=== PATIENT | male | born 1955 | race Caucasian/White ===

== ENCOUNTER → 2024-05-31 | Outpatient (CLI) | payer MEDICARE, BC ==
[2024-05-31 09:43] LABS: CHOLESTEROL RISK RATIO 3.88 (<5); HDL CHOLESTEROL 48.6 MG/DL (>40); LDL CHOLESTEROL 120.4 MG/DL (<100); NON-HDL-C 140.4 MG/DL
== END ==
LOC: M LAB 08:03
PROVIDERS: ATTEND Internal Medicine Cardiovascular Disease
DX: E78.2 Mixed hyperlipidemia (principal)

== ENCOUNTER → 2024-07-24 | Outpatient (CLI) | payer MEDICARE, BC | LOC: M RAD 14:59 | PROVIDERS: ATTEND Physician Assistant | DX: S46.012A Strain of muscle(s) and tendon(s) of the rotator cuff of left shoulder, initial encounter (principal); Y93.9 Activity, unspecified; Y92.9 Unspecified place or not applicable ==

== ENCOUNTER → 2024-07-29 | Outpatient (CLI) | payer MEDICARE, BC | LOC: M LAB 09:57 | PROVIDERS: ATTEND Nurse Practitioner Family | DX: C83.30 Diffuse large B-cell lymphoma, unspecified site (principal) ==

== ENCOUNTER → 2024-07-29 | Outpatient (CLI) | payer MEDICARE, BC ==
[2024-07-29 10:36] LABS: BASO % 0.8 % (0.0-1.0); EOS % 18.5 % (0.0-3.0); HEMATOCRIT 40.8 % (42.0-52.0); HEMOGLOBIN 13.1 g/dl (13.5-17.5); LYMPH # 1.9 10^3/uL (1.5-5.0); LYMPH % 35.7 % (24.0-44.0); MEAN CORPUSCULAR HEMOGLOBIN 31.4 pg (27.0-33.0); MEAN CORPUSCULAR HGB CONC 32.1 g/dl (32.0-36.5); MEAN CORPUSCULAR VOLUME 97.8 fl (80.0-96.0); MONO # 0.5 10^3/uL (0.0-0.8); NEUTROPHILS # 1.8 10^3/uL (1.5-8.5); NEUTROPHILS % 34.4 % (36.0-66.0); PLATELET COUNT, AUTOMATED 309 10^3/uL (150-450); RED BLOOD COUNT 4.17 10^6/uL (4.30-6.10); WHITE BLOOD COUNT 5.3 10^3/uL (4.0-10.0)
[2024-07-29 11:05] LABS: ALKALINE PHOSPHATASE 79 U/L (46-116); ALT/SGPT 20 U/L (7.0-40); AST/SGOT 18 U/L (<34); BILIRUBIN,TOTAL 0.4 MG/DL (0.3-1.2); BLOOD UREA NITROGEN 16 MG/DL (9-23); CALCIUM LEVEL 10.3 MG/DL (8.3-10.6); CARBON DIOXIDE LEVEL 31 MMOL/L (20-31); CHLORIDE LEVEL 106 MMOL/L (98-107); CREATININE FOR GFR 1.12 MG/DL (0.70-1.30); GLOMERULAR FILTRATION RATE > 60.0 (>49); GLUCOSE, FASTING 90 MG/DL (74-106); POTASSIUM SERUM 4.8 MMOL/L (3.5-5.1); SODIUM LEVEL 140 MMOL/L (136-145); TOTAL PROTEIN 6.8 G/DL (5.7-8.2)
[2024-07-29 11:07] LABS: IMMUNOGLOBULIN G 472 MG/DL (650-1600)
== END ==
LOC: M LAB 09:45
PROVIDERS: ATTEND Internal Medicine Hematology & Oncology
DX: C82.03 Follicular lymphoma grade I, intra-abdominal lymph nodes (principal); C83.78 Burkitt lymphoma, lymph nodes of multiple sites; C83.30 Diffuse large B-cell lymphoma, unspecified site; G43.909 Migraine, unspecified, not intractable, without status migrainosus; D80.1 Nonfamilial hypogammaglobulinemia; I26.99 Other pulmonary embolism without acute cor pulmonale; I82.431 Acute embolism and thrombosis of right popliteal vein; R55 Syncope and collapse; R05.9 Cough, unspecified; R74.01 Elevation of levels of liver transaminase levels; R19.7 Diarrhea, unspecified; R59.1 Generalized enlarged lymph nodes; N40.1 Benign prostatic hyperplasia with lower urinary tract symptoms; Z85.79 Personal history of other malignant neoplasms of lymphoid, hematopoietic and related tissues

== ENCOUNTER → 2024-09-29 | Outpatient (CLI) | payer MEDICARE, BC ==
[~2024-09-29] MED LIST: ACET650T15 PO; AJOV225I SC; ASPI81CH33 PO; BENA25CA4 PO; BREO1INH3; BUTA1CAP PO; CITRTAB18 PO; FENO160T10; FINA5TAB2; MAGN400C PO; METR60GE3 TOP; MIDO5TA; OMEP40CA5; PRAV80TA2; TAMS1CAP17; THERTAB52 PO; VENTAER INH; ZYRTTAB8 PO; [UNRECOGNIZED DRUG - CODE] IO; [UNRECOGNIZED DRUG - CODE] PO
== END ==
LOC: M RAD 13:41
PROVIDERS: ATTEND Physician Assistant Surgical
DX: M75.101 Unspecified rotator cuff tear or rupture of right shoulder, not specified as traumatic (principal)

== ENCOUNTER → 2024-10-29 | Outpatient (CLI) | payer MEDICARE, BC | LOC: M PLARAD 09:29 | PROVIDERS: ATTEND Physician Assistant Surgical | DX: M75.121 Complete rotator cuff tear or rupture of right shoulder, not specified as traumatic (principal) ==

== ENCOUNTER → 2024-11-11 | Outpatient (CLI) | payer MEDICARE, BC | LOC: M LAB 11:24 | PROVIDERS: ATTEND Physician Assistant | DX: R97.20 Elevated prostate specific antigen [PSA] (principal) ==

== ENCOUNTER → 2024-12-03 | Outpatient (REF) | payer MEDICARE, BC ==
[2024-12-03 15:16] LABS: AMORPHOUS SEDIMENT SMALL (NEGATIVE); APPEARANCE, URINE HAZY (CLEAR); BACTERIA, URINE AUTO NEGATIVE (NEGATIVE); BILIRUBIN, URINE AUTO NEGATIVE (NEGATIVE); BLOOD, URINE BLOOD NEGATIVE (NEGATIVE); COLOR, URINE YELLOW (YELLOW); GLUCOSE, URINE (UA) AUTO NEGATIVE (NEGATIVE); KETONE, URINE AUTO NEGATIVE (NEGATIVE); LEUKOCYTE ESTERASE, URINE AUTO NEGATIVE (NEGATIVE); MUCUS, URINE SMALL (NEGATIVE); NITRITE, URINE AUTO NEGATIVE (NEGATIVE); PROTEIN, URINE AUTO NEGATIVE (NEGATIVE); RBC, URINE AUTO 1 /HPF (0-3); SQUAMOUS EPITHELIAL CELL UR AU 0 /HPF (0-6); UROBILINOGEN, URINE AUTO 0.2 mg/dL (0.0-2.0); WBC, URINE AUTO 1 /HPF (0-3)
== END ==
LOC: M LAB REF 13:02
PROVIDERS: ATTEND Internal Medicine
DX: Z01.818 Encounter for other preprocedural examination (principal)

== ENCOUNTER → 2025-05-04 | Outpatient (CLI) | payer MEDICARE, BC ==
[~2025-05-04] VITALS: Ht 190.5 cm; Wt 96.0 kg
[~2025-05-04] MED LIST changes: +ACET-683 PO; +ATIV1TAB10 PO; -BREO1INH3; +BREO1INH3 INH; +CLONI1TA PO; +DULO30CA9 PO; -FENO160T10; +FENO160T10 PO; -FINA5TAB2; +FINA5TAB2 PO; +HYOS125TA PO; +LEVO1TAB39 PO; -MIDO5TA; +MIDO5TA PO; +MORP1SOL5 PO; +OMEP-173 PO; -PRAV80TA2; +PRAV80TA75 PO; -TAMS1CAP17; +TAMS1CAP17 PO; +UBRO100T PO
[2025-05-04 13:23] VITALS: BP 149/80; O2SAT 97
== END ==
LOC: M PAL 12:52
PROVIDERS: ATTEND Physician Assistant
DX: Z51.5 Encounter for palliative care (principal); C85.90 Non-Hodgkin lymphoma, unspecified, unspecified site; C83.30 Diffuse large B-cell lymphoma, unspecified site; C82.00 Follicular lymphoma grade I, unspecified site; Z92.21 Personal history of antineoplastic chemotherapy; Z92.3 Personal history of irradiation; F03.A0 Unspecified dementia, mild, without behavioral disturbance, psychotic disturbance, mood disturbance, and anxiety; Z79.891 Long term (current) use of opiate analgesic; Z91.048 Other nonmedicinal substance allergy status; Z88.2 Allergy status to sulfonamides; Z91.040 Latex allergy status; Z91.041 Radiographic dye allergy status; Z79.82 Long term (current) use of aspirin; Z79.52 Long term (current) use of systemic steroids; Z79.899 Other long term (current) drug therapy

== ENCOUNTER 2025-05-07 19:31 | Inpatient (IN) | payer MEDICARE, BC ==
[~2025-05-07] VITALS: Ht 195.6 cm; Wt 98.3 kg
[~2025-05-07 19:31] MED LIST changes: -ATIV1TAB10 PO; -HYOS125TA PO; -LEVO1TAB39 PO; -MORP1SOL5 PO; -UBRO100T PO
[2025-05-07 20:32] LABS: BASO # 0.1 10^3/uL (0.0-0.2); BASO % 0.4 % (0.0-1.0); EOS # 0.0 10^3/uL (0.0-0.5); EOS % 0.2 % (0.0-3.0); LYMPH # 2.2 10^3/uL (1.5-5.0); LYMPH % 16.0 % (24.0-44.0); MONO # 1.7 10^3/uL (0.0-0.8); MONO % 12.2 % (2.0-8.0); NEUTROPHILS # 9.6 10^3/uL (1.5-8.5); NEUTROPHILS % 69.3 % (36.0-66.0); PLATELET COUNT, AUTOMATED 621 10^3/uL (150-450)
[2025-05-07 21:54] LABS: ALT/SGPT 21 U/L (7.0-40); AST/SGOT 38 U/L (<34); CALCIUM LEVEL 9.6 MG/DL (8.3-10.6); CARBON DIOXIDE LEVEL 24 MMOL/L (20-31); CHLORIDE LEVEL 96 MMOL/L (98-107); CREATININE FOR GFR 0.79 MG/DL (0.70-1.30); GLOMERULAR FILTRATION RATE > 90.0 (>49); POTASSIUM SERUM 5.1 MMOL/L (3.5-5.1); SODIUM LEVEL 130 MMOL/L (136-145)
[2025-05-07] MEDS: MORPHINE 2 MG/ML 1 ML VIAL IV ONE (22:29)
[2025-05-07] MEDS: NS (Normal Saline) 0.9% 1,000 ML IV ONE (22:29)
[2025-05-07] MEDS: CEFEPIME HCL 2 GM in DEXTROSE 5% (D5W) ADV/MINI-BAG 50 ML IV ONE (22:29)
[2025-05-07 22:47] LABS: KETONE, URINE AUTO RFX NEGATIVE (NEGATIVE); LEUKOCYTE ESTERASE UR AUTO RFX NEGATIVE (NEGATIVE); MUCUS, URINE RFX SMALL (NEGATIVE); NITRITE, URINE AUTO RFX NEGATIVE (NEGATIVE); RBC, URINE AUTO RFX 0 /HPF (0-3); SQUAM EPITHELIAL CELL UR AURFX 0 /HPF (0-6); WBC, URINE AUTO RFX 2 /HPF (0-3)
[2025-05-07] MEDS: ACETAMINOPHEN *IV* 1,000 MG in IV 1 EA IV ONE (23:17)
[2025-05-08] MEDS ORDERED: UBRO100T PO (03:19)
[2025-05-08] MEDS ORDERED: MAALOX 30 ML SUSP *UDC PO PRN (05:15)
[2025-05-08] MEDS ORDERED: MOM 30 ML SUSPENSION UDC PO PRN (05:15)
[2025-05-08] MEDS ORDERED: NS (Normal Saline) 0.9% 1,000 ML IV SCH (05:15)
[2025-05-08] MEDS ORDERED: PROHANCE 279.3MG/ML 15ML VIAL As Ordered ONE (08:59)
[2025-05-08] MEDS ORDERED: PROHANCE 279.3MG/ML 5ML VIAL As Ordered ONE (08:59)
[2025-05-08] MEDS ORDERED: MORPHINE 4 MG/ML 1 ML VIAL IV PRN (10:30)
[2025-05-08] MEDS: DOCUSATE SODIUM 100 MG CAPSULE PO SCH (10:56)
[2025-05-08] MEDS: PANTOPRAZOLE 40MG VIAL IV SCH (10:57)
[2025-05-08] MEDS: NS (Normal Saline) 0.9% 1,000 ML IV SCH (10:57)
[2025-05-08] MEDS: CEFEPIME HCL 2 GM in DEXTROSE 5% (D5W) ADV/MINI-BAG 50 ML IV SCH (10:57)
[2025-05-08] MEDS: HEPARIN SOD 5000 UNITS/ML 1 ML VIAL/SYRINGE SC SCH (11:00)
[2025-05-08] MEDS ORDERED: HOME MED LIST COMPLETE! XX SCH (12:55)
[2025-05-08] MEDS: MORPHINE 2 MG/ML 1 ML VIAL IV PRN (13:37)
[2025-05-08] MEDS: ACETAMINOPHEN 325 MG TAB PO PRN (13:37)
[2025-05-08] MEDS ORDERED: ALBUTEROL 90 MCG/ACT 8 GM HFA INHALER INH PRN (13:55)
[2025-05-08] MEDS ORDERED: UBRELVY XX PRN (13:55)
[2025-05-08] MEDS: ACETAMINOPHEN *IV* 500 MG in IV 1 EA IV ONE (14:40)
[2025-05-08 14:49] LABS: PLATELET COUNT, AUTOMATED 555 10^3/uL (150-450)
[2025-05-08 15:20] LABS: ALT/SGPT 17 U/L (7.0-40); AST/SGOT 36 U/L (<34); CALCIUM LEVEL 9.6 MG/DL (8.3-10.6); CARBON DIOXIDE LEVEL 24 MMOL/L (20-31); CHLORIDE LEVEL 95 MMOL/L (98-107); CREATININE FOR GFR 0.87 MG/DL (0.70-1.30); GLOMERULAR FILTRATION RATE > 90.0 (>49); POTASSIUM SERUM 5.2 MMOL/L (3.5-5.1); SODIUM LEVEL 133 MMOL/L (136-145)
[2025-05-08 16:00] VITALS: BP 115/71; TEMP 102.6
[2025-05-08] MEDS: MIDODRINE 5 MG TAB PO SCH (16:00)
[2025-05-08] MEDS: KETOROLAC 30 MG/ML 1 ML VIAL IV ONE (16:17)
[2025-05-08 16:25] LABS: C REACTIVE PROTEIN QUANTITATIV 25.78 MG/DL (<1.0)
[2025-05-08 18:11] VITALS: TEMP 99.4
[2025-05-08] MEDS: ADVAIR HFA 230/21 MCG INHALER INH SCH (19:02)
[2025-05-08 19:27] VITALS: TEMP 97.9
[2025-05-08 19:42] VITALS: BP 149/83; O2SAT 97
[2025-05-08] MEDS: FENOFIBRATE 145 MG TABLET PO SCH (21:19)
[2025-05-08] MEDS: PRAVASTATIN 20 MG TAB PO SCH (21:20)
[2025-05-09 03:37] VITALS: BP 150/83; TEMP 98.6; O2SAT 94
[2025-05-09 06:31] LABS: PLATELET COUNT, AUTOMATED 497 10^3/uL (150-450)
[2025-05-09 06:55] LABS: ALT/SGPT 16 U/L (7.0-40); AST/SGOT 40 U/L (<34); CALCIUM LEVEL 9.1 MG/DL (8.3-10.6); CARBON DIOXIDE LEVEL 22 MMOL/L (20-31); CHLORIDE LEVEL 98 MMOL/L (98-107); CREATININE FOR GFR 0.85 MG/DL (0.70-1.30); GLOMERULAR FILTRATION RATE > 90.0 (>49); POTASSIUM SERUM 5.0 MMOL/L (3.5-5.1); SODIUM LEVEL 132 MMOL/L (136-145)
[2025-05-09] MEDS: FINASTERIDE 5 MG TAB PO SCH (09:20)
[2025-05-09] MEDS: SENNA 8.6 MG TAB PO PRN (09:21)
[2025-05-09] MEDS: MAGNESIUM OXIDE 400 MG TAB PO SCH (09:21)
[2025-05-09] MEDS: MULTIVITAMINS/MINERALS THERAP 1 TAB PO SCH (09:21)
[2025-05-09] MEDS: TAMSULOSIN 0.4 MG CAP PO SCH (09:23)
[2025-05-09] MEDS: OMEPRAZOLE 20MG CAP PO SCH (09:23)
[2025-05-09] MEDS: ASPIRIN 81 MG CHEWABLE TABLET PO SCH (09:23)
[2025-05-09] MEDS: NS (Normal Saline) 0.9% 1,000 ML IV ONE (09:26)
[2025-05-09] MEDS: MIRALAX *UNIT DOSE* 17 GM PACKET PO PRN (09:36)
[2025-05-09 11:17] LABS: PHOSPHORUS LEVEL 3.6 MG/DL (2.4-5.1)
[2025-05-09 12:00] VITALS: BP 147/78; TEMP 99; O2SAT 96
[2025-05-09 15:40] VITALS: BP 146/77; TEMP 98.1
[2025-05-09 15:51] LABS: APPEARANCE, CSF CLEAR (CLEAR); COLOR, CSF COLORLESS (COLORLESS); CSF TUBE# CELL CNT TUBE 1
[2025-05-09] MEDS: FLUCONAZOLE 100 MG TAB PO SCH (15:53)
[2025-05-09 16:50] VITALS: BP 147/73; TEMP 97.9; O2SAT 94
[2025-05-09] MEDS: FIORICET TAB PO PRN (17:38)
[2025-05-09 19:36] LABS: CSF TUBE# GLU TUBE 4; CSF TUBE# TP TUBE 4; GLUCOSE CSF 58 MG/DL (40-70); TOTAL PROTEIN,CSF < 2.0 MG/DL (15-45)
[2025-05-09 20:00] VITALS: BP 123/70; TEMP 97.7; O2SAT 94
[2025-05-10 03:16] VITALS: BP 128/71; TEMP 98.2; O2SAT 94
[2025-05-10 08:32] LABS: MAGNESIUM LEVEL 1.5 MG/DL (1.8-2.4)
[2025-05-10 10:00] VITALS: TEMP 101.2
[2025-05-10] MEDS ORDERED: MORPHINE 10 MG/0.5 ML ORAL CONCENTRATE SOLUTION U/D SL PRN (11:20)
[2025-05-10 11:40] LABS: ALT/SGPT 15 U/L (7.0-40); AST/SGOT 48 U/L (<34); CALCIUM LEVEL 8.9 MG/DL (8.3-10.6); CARBON DIOXIDE LEVEL 17 MMOL/L (20-31); CHLORIDE LEVEL 103 MMOL/L (98-107); CREATININE FOR GFR 0.80 MG/DL (0.70-1.30); GLOMERULAR FILTRATION RATE > 90.0 (>49); POTASSIUM SERUM 5.2 MMOL/L (3.5-5.1); SODIUM LEVEL 137 MMOL/L (136-145)
[2025-05-10] MEDS: MORPHINE 10 MG/0.5 ML ORAL CONCENTRATE SOLUTION U/D SL PRN (11:51)
[2025-05-10] MEDS: MAGNESIUM OXIDE 400 MG TAB PO ONE (11:51)
[2025-05-10 12:00] VITALS: BP 148/78; TEMP 101.8; O2SAT 95
[2025-05-10 12:18] LABS: PLATELET COUNT, AUTOMATED 544 10^3/uL (150-450)
[2025-05-10] MEDS: MORPHINE 10 MG/0.5 ML ORAL CONCENTRATE SOLUTION U/D SL SCH (13:00)
[2025-05-10 14:00] VITALS: TEMP 100
[2025-05-10 16:00] VITALS: TEMP 98.9
[2025-05-10 19:46] VITALS: BP 137/78; TEMP 97.7; O2SAT 95
[2025-05-10] MEDS: OLANZapine ORAL DISINTEGRATING TAB 5MG PO SCH (21:16)
[2025-05-10] MEDS: MAGNESIUM OXIDE 400 MG TAB PO SCH (21:20)
[2025-05-10 23:24] LABS: BASO # 0.1 10^3/uL (0.0-0.2); BASO % 0.4 % (0.0-1.0); EOS # 0.0 10^3/uL (0.0-0.5); EOS % 0.3 % (0.0-3.0); LYMPH # 1.6 10^3/uL (1.5-5.0); LYMPH % 11.6 % (24.0-44.0); MONO # 1.6 10^3/uL (0.0-0.8); MONO % 11.6 % (2.0-8.0); NEUTROPHILS # 10.3 10^3/uL (1.5-8.5); NEUTROPHILS % 73.7 % (36.0-66.0); PLATELET COUNT, AUTOMATED 536 10^3/uL (150-450)
[2025-05-10 23:36] LABS: INR 1.44
[2025-05-10 23:39] LABS: CALCIUM LEVEL 9.6 MG/DL (8.3-10.6); CARBON DIOXIDE LEVEL 24 MMOL/L (20-31); CHLORIDE LEVEL 101 MMOL/L (98-107); CREATININE FOR GFR 0.85 MG/DL (0.70-1.30); GLOMERULAR FILTRATION RATE > 90.0 (>49); POTASSIUM SERUM 4.8 MMOL/L (3.5-5.1); SODIUM LEVEL 135 MMOL/L (136-145)
[2025-05-11 04:18] VITALS: BP 141/80; TEMP 97.9; O2SAT 94
[2025-05-11 06:10] LABS: PLATELET COUNT, AUTOMATED 559 10^3/uL (150-450)
[2025-05-11 07:03] LABS: ALT/SGPT 16 U/L (7.0-40); AST/SGOT 46 U/L (<34); CALCIUM LEVEL 9.9 MG/DL (8.3-10.6); CARBON DIOXIDE LEVEL 24 MMOL/L (20-31); CHLORIDE LEVEL 100 MMOL/L (98-107); CREATININE FOR GFR 0.81 MG/DL (0.70-1.30); GLOMERULAR FILTRATION RATE > 90.0 (>49); POTASSIUM SERUM 4.9 MMOL/L (3.5-5.1); SODIUM LEVEL 135 MMOL/L (136-145)
[2025-05-11 08:00] VITALS: TEMP 102.6
[2025-05-11 08:24] LABS: MAGNESIUM LEVEL 1.7 MG/DL (1.8-2.4)
[2025-05-11] MEDS: METAMUCIL PACKET PO SCH (09:00)
[2025-05-11] MEDS: DOCUSATE SOD LIQ 100 MG/10 ML UDC PO SCH (09:00)
[2025-05-11] MEDS: SENNA 8.6 MG TAB PO SCH (10:30)
[2025-05-11] MEDS ORDERED: MIRALAX *UNIT DOSE* 17 GM PACKET PO SCH (10:30)
[2025-05-11 11:34] LABS: KETONE, URINE AUTO RFX TRACE mg/dL (NEGATIVE); LEUKOCYTE ESTERASE UR AUTO RFX NEGATIVE (NEGATIVE); MUCUS, URINE RFX SMALL (NEGATIVE); NITRITE, URINE AUTO RFX NEGATIVE (NEGATIVE); RBC, URINE AUTO RFX 1 /HPF (0-3); SQUAM EPITHELIAL CELL UR AURFX 0 /HPF (0-6); WBC, URINE AUTO RFX 2 /HPF (0-3)
[2025-05-11 12:00] VITALS: BP 137/87; TEMP 103; O2SAT 93
[2025-05-11 13:10] LABS: C REACTIVE PROTEIN QUANTITATIV 24.68 MG/DL (<1.0)
[2025-05-11] MEDS: BISACODYL 5 MG TAB PO SCH (13:11)
[2025-05-11] MEDS: IBUPROFEN 800 MG TAB PO PRN (14:17)
[2025-05-11 16:00] VITALS: TEMP 101.3
[2025-05-11] MEDS ORDERED: ACETAMINOPHEN *IV* 500 MG in IV 1 EA IV ONE (16:35)
[2025-05-11] MEDS ORDERED: KETOROLAC 30 MG/ML 1 ML VIAL IV ONE (16:35)
[2025-05-11 21:30] VITALS: TEMP 97.3
[2025-05-11] MEDS ORDERED: ACETAMINOPHEN 325 MG TAB PO PRN (21:45)
[2025-05-11] MEDS ORDERED: ACETAMINOPHEN 650 MG SUPP PR PRN (21:45)
[2025-05-11] MEDS ORDERED: OLANZapine INTRAMUSCULAR 10MG VIAL IM PRN (21:45)
[2025-05-12] MEDS: KETOROLAC 30 MG/ML 1 ML VIAL IV ONE (01:09)
[2025-05-12 05:24] VITALS: BP 144/87; TEMP 97.5; O2SAT 96
[2025-05-12 05:36] VITALS: TEMP 95.4
[2025-05-12 06:07] LABS: PLATELET COUNT, AUTOMATED 578 10^3/uL (150-450)
[2025-05-12 06:20] VITALS: BP 155/91; TEMP 97.5; O2SAT 94
[2025-05-12 06:32] VITALS: TEMP 97
[2025-05-12 07:15] LABS: ALT/SGPT 17 U/L (7.0-40); AST/SGOT 53 U/L (<34); CALCIUM LEVEL 10.9 MG/DL (8.3-10.6); CARBON DIOXIDE LEVEL 23 MMOL/L (20-31); CHLORIDE LEVEL 103 MMOL/L (98-107); CREATININE FOR GFR 1.04 MG/DL (0.70-1.30); GLOMERULAR FILTRATION RATE 78.7 (>49); POTASSIUM SERUM 4.6 MMOL/L (3.5-5.1); SODIUM LEVEL 141 MMOL/L (136-145)
[2025-05-12 07:56] LABS: TRIGLYCERIDES LEVEL 309 MG/DL (<150)
[2025-05-12 08:00] VITALS: BP 135/68
[2025-05-12 10:22] LABS: MAGNESIUM LEVEL 2.1 MG/DL (1.8-2.4); PHOSPHORUS LEVEL 4.0 MG/DL (2.4-5.1)
[2025-05-12 10:23] LABS: THYROXINE (T4) 9.4 UG/DL (4.5-10.9)
[2025-05-12 10:27] LABS: T UPTAKE 47.4 % (22.5-37.0)
[2025-05-12 10:28] LABS: VITAMIN B12 LEVEL > 2000 PG/ML (211-911)
[2025-05-12] MEDS ORDERED: ATROPINE SULFATE 1% OPHTH SOLN 2 ML BTL SL PRN (11:45)
[2025-05-12] MEDS ORDERED: LORazepam 1 MG TAB PO PRN (11:45)
[2025-05-12] MEDS ORDERED: ONDANSETRON 4MG ORAL DISINTEGRATING TAB PO PRN (11:45)
[2025-05-12] MEDS ORDERED: HYOSCYAMINE SULFATE 0.125 MG SUBL TABLET PO PRN (11:45)
[2025-05-12 12:15] VITALS: BP 136/63; TEMP 97.5; O2SAT 95
[2025-05-12] MEDS: MORPHINE 10 MG/0.5 ML ORAL CONCENTRATE SOLUTION U/D SL SCH (13:44)
[2025-05-12 15:11] LABS: CRYPTOCOCCUS ANTIGEN CSF Negative (Negative)
[2025-05-12] MEDS: OLANZapine ORAL DISINTEGRATING TAB 5MG PO SCH (21:49)
[2025-05-13] MEDS ORDERED: HYOS125TA PO (09:13)
[2025-05-13] MEDS ORDERED: ATIV1TAB10 PO (09:13)
[2025-05-13] MEDS ORDERED: MORP1SOL5 PO (09:13)
[2025-05-13] MEDS ORDERED: LEVO1TAB39 PO (09:30)
== END 2025-05-13 13:30 | disposition hospice, inpatient (51) | DRG 71 ==
LOC: EDBD 19:31 → M ED 19:31 → M ED INP 05-08 13:54 → M MS5PR 05-08 15:34
PROVIDERS: ADMIT Internal Medicine; ATTEND Internal Medicine
PROC: 009U3ZX Drainage of Spinal Canal, Percutaneous Approach, Diagnostic (ICD-10-PCS; principal; 2025-05-09 15:00)
DX: G93.41 Metabolic encephalopathy (principal); R65.10 Systemic inflammatory response syndrome (SIRS) of non-infectious origin without acute organ dysfunction; E87.1 Hypo-osmolality and hyponatremia; J98.11 Atelectasis; C83.30 Diffuse large B-cell lymphoma, unspecified site; E46 Unspecified protein-calorie malnutrition; Z94.84 Stem cells transplant status; J90 Pleural effusion, not elsewhere classified; B37.0 Candidal stomatitis; C82.90 Follicular lymphoma, unspecified, unspecified site; F03.90 Unspecified dementia, unspecified severity, without behavioral disturbance, psychotic disturbance, mood disturbance, and anxiety; I10 Essential (primary) hypertension; D64.9 Anemia, unspecified; D75.839 Thrombocytosis, unspecified; E78.5 Hyperlipidemia, unspecified; R13.10 Dysphagia, unspecified; E86.0 Dehydration; R74.01 Elevation of levels of liver transaminase levels; E80.6 Other disorders of bilirubin metabolism; E88.09 Other disorders of plasma-protein metabolism, not elsewhere classified; G43.909 Migraine, unspecified, not intractable, without status migrainosus; J45.909 Unspecified asthma, uncomplicated; Z92.3 Personal history of irradiation; Z92.21 Personal history of antineoplastic chemotherapy; Z91.040 Latex allergy status; Z91.041 Radiographic dye allergy status; Z88.8 Allergy status to other drugs, medicaments and biological substances; Z79.899 Other long term (current) drug therapy; Z95.2 Presence of prosthetic heart valve